=== PATIENT | female | born 1995 | race Caucasian/White ===

== ENCOUNTER 2023-01-12 10:35 | Emergency (ER) | payer OTHER, MEDICAID ==
[~2023-01-12] VITALS: Ht 160 cm; Wt 74.0 kg
[2023-01-12 10:52] VITALS: BP 125/91
== END 2023-01-12 17:34 | disposition left against medical advice (07) ==
LOC: ER 10:35
DX: Z53.21 Procedure and treatment not carried out due to patient leaving prior to being seen by health care provider (principal)
CPT/HCPCS: 99281